=== PATIENT | female | born 1975 | race Caucasian/White ===

== ENCOUNTER 2018-08-16 02:22 | Emergency (ER) | payer SELFPAY ==
[~2018-08-16] VITALS: Ht 160 cm; Wt 56.7 kg
[2018-08-16 02:29] VITALS: BP 129/90
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
[2018-08-16] MEDS ORDERED: Lidocaine 1% 10mg/ml/Epi 0.005mg/ml 30ml vial INJ ONE (02:45)
[2018-08-16] MEDS ORDERED: Bacitracin Oint UD TOPIC ONE (02:45)
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
[2018-08-16] MEDS ORDERED: BACITRACIN15 GM TOPIC (03:29)
[2018-08-16 03:33] VITALS: BP 125/83
--- NOTE | 2018-08-16 03:33 | NUR ---
ER DISCHARGE NOTE: Patient is cleared to be discharged per Dr. Cantrell. Pt has cleared from medical side, OK to book. D/C paper was signed by SHIRA/Dontae [id number] Bacitracin ointment applied to the injuried site of right eyebrow, band aid applied. Pt is aox4 on room air with stable vital signs. Pt was given dc and prescription instructions, pt was able to verbalize understanding. Pt's ID band removed. Pt is able to ambulate with steady gait and took all belongings.
== END 2018-08-16 03:30 ==
LOC: EDBD 02:22 → EMR 02:45
DX: S01.81XA Laceration without foreign body of other part of head, initial encounter (principal); F10.129 Alcohol abuse with intoxication, unspecified; Y35.811A Legal intervention involving manhandling, law enforcement official injured, initial encounter
CPT/HCPCS: 99283